=== PATIENT | female | born 1960 | race Caucasian/White ===

== ENCOUNTER 2018-06-09 10:32 | Day surgery (SDC) | payer OTHER ==
[2018-06-08 09:23] VITALS: BMI 34.4
[2018-06-09] MEDS: LIDOCAINE 1% 20 ML VIAL (10MG/ML) FOR IV START INTRADERMA ONE (11:48)
[2018-06-09] MEDS: LACTATED RINGERS 1,000 ML IV SCH (11:48)
[2018-06-09] MEDS ORDERED: LIDOCAINE 1% INJ 10MG/ML (20 ML MDV) ONE (12:08)
[2018-06-09] MEDS ORDERED: PROPOFOL 10 MG/ML 20 ML VIAL IV ONE (12:08)
--- NOTE | 2018-06-09 12:23 | P.PCN ---
Date of Procedure: 06/09/18 Procedure(s) Performed: BRIEF HISTORY: Patient is a 57-year-old pleasant white female, scheduled for an elective colonoscopy as a part of screening for colon neoplasia. PROCEDURE PERFORMED: Colonoscopy. PREOPERATIVE DIAGNOSIS: Screening for colon cancer. IV sedation per Anesthesia. PROCEDURE: After informed consent was obtained, the patient, was brought into the endoscopy unit. IV sedation was administered by Anesthesia under continuous monitoring. Digital rectal examination was normal. Initially the Olympus CF-160 flexible video colonoscope was then inserted in the rectum, gradually advanced into the cecum without any difficulty. Careful examination was performed as the scope was gradually being withdrawn. Ileocecal valve and the appendiceal orifice were visualized and appeared normal. Prep was excellent. Mucosa of the cecum, ascending colon, transverse colon, descending colon, sigmoid colon, and rectum appeared normal. Scattered sigmoid diverticulosis seen. Retroflexion was performed in the rectum and no lesions were seen. The patient tolerated the procedure well. IMPRESSION: Normal-appearing colon from rectum to cecum with no evidence of colorectal neoplasia Scattered sigmoidal diverticulosis. RECOMMENDATIONS: Findings of this examination were discussed with the patient as well as her family. She was advised to have a repeat screening colonoscopy in 10 years.
[2018-06-09 13:08] VITALS: BP 122/68; PULSE 63; RESP 18
== END 2018-06-09 13:20 | disposition home or self-care (01) ==
LOC: ORWHC2ENDO 10:32
PROVIDERS: ATTEND Internal Medicine Gastroenterology
DX: Z12.11 Encounter for screening for malignant neoplasm of colon (principal); K57.90 Diverticulosis of intestine, part unspecified, without perforation or abscess without bleeding; F17.210 Nicotine dependence, cigarettes, uncomplicated; Z86.73 Personal history of transient ischemic attack (TIA), and cerebral infarction without residual deficits; Z79.899 Other long term (current) drug therapy
CPT/HCPCS: J2001; J2704; G0121

== ENCOUNTER → 2018-12-29 | Outpatient (CLI) | payer OTHER ==
[2018-12-29 16:36] LABS: HCT 40.3 % (34.0-46.0); HGB 12.8 gm/dL (11.4-16.0); MCH 29.6 pg (25.0-35.0); MCHC 31.8 g/dL (31.0-37.0); Mean Platelet Volume 7.3; Platelet Count 236 k/uL (150-450); RBC 4.33 m/uL (3.80-5.40); RDW 12.9 % (11.5-15.5); WBC 6.7 k/uL (3.8-10.6)
[2018-12-30 00:41] LABS: African American GFR (CKD) 111.5 (60.0-200.0); Albumin 4.1 g/dL (3.80-4.90); Albumin/Globulin Ratio 1.52 (1.60-3.17); Anion Gap 9.7 mmol/L (4.00-12.00); BUN/Creat Ratio 31.43 Ratio (12.00-20.00); Calcium 8.8 mg/dL (8.7-10.3); Carbon Dioxide 25.3 mmol/L (21.6-31.8); Globulin 2.7 g/dL (1.6-3.3); Non-African American GFR(CKD) 96.2 (60.0-200.0); Potassium 4.2 mmol/L (3.5-5.5); Total Bilirubin 0.2 mg/dL (0.2-1.2); Total Protein 6.8 g/dL (6.2-8.2)
[2018-12-30 00:56] LABS: T4, Free (Free Thyroxine) 0.8 ng/dL (0.80-1.80)
== END | disposition home or self-care (01) ==
LOC: LABWHC1 14:42
PROVIDERS: ATTEND Internal Medicine
DX: L98.8 Other specified disorders of the skin and subcutaneous tissue (principal); R60.0 Localized edema; M79.673 Pain in unspecified foot
CPT/HCPCS: 36415; 80053; 84439; 84443; 84481; 85027

== ENCOUNTER → 2023-07-23 | Outpatient (CLI) | payer OTHER ==
[2023-07-23 18:14] LABS: Basophils # (A) 0.02 X 10*3/uL (0.00-0.10); Basophils % (A) 0.2 %; Eosinophils # (A) 0.09 X 10*3/uL (0.04-0.35); HCT 37.5 % (37.2-46.3); HGB 12.5 g/dL (12.0-15.0); Lymphocytes # (A) 3.31 X 10*3/uL (0.90-5.00); Lymphocytes % (A) 37.9 %; MCH 30.5 pg (27.0-32.0); MCHC 33.3 g/dL (32.0-37.0); MCV 91.5 FL (80.0-97.0); Mean Platelet Volume 10.7 FL (9.5-12.2); Monocytes # (A) 0.74 X 10*3/uL (0.20-1.00); Monocytes % (A) 8.5 %; NRBC Per 100 WBC 0 X 10*3/uL (0.00-0.01); Neutrophils # (A) 4.55 X 10*3/uL (1.80-7.70); Neutrophils % (A) 52.2 %; Platelet Count 267 X 10*3/uL (140-440); RDW 13.2 % (11.5-14.5); WBC 8.73 X 10*3/uL (4.50-10.00)
[2023-07-23 18:36] LABS: ALT 33 U/L (8-44); AST 23 U/L (13-35); Albumin 4.1 g/dL (3.8-4.9); Albumin/Globulin Ratio 1.24 Ratio (1.60-3.17); Alkaline Phosphatase 93 U/L (41-126); BUN/Creat Ratio 24.89 Ratio (12.00-20.00); Blood Urea Nitrogen 22.4 mg/dL (9.0-27.0); Calcium 8.5 mg/dL (8.7-10.3); Chloride 106 mmol/L (96-109); Chol/HDL Ratio 5.79 Ratio; Globulin 3.3 g/dL (1.6-3.3); Glucose 111 mg/dL (70-110); LDL Cholesterol,Calculated 162.9 mg/dL (0.0-131.0); Potassium 4.2 mmol/L (3.5-5.5); Sodium 139 mmol/L (135-145); Total Bilirubin <0.2 mg/dL (0.3-1.2); Total Protein 7.4 g/dL (6.2-8.2); Uric Acid 4.9 mg/dL (2.9-7.7)
[2023-07-24 04:38] LABS: Toxoplasma Antibody (IgG) <3.0 IU/mL (<7.2); Toxoplasma Antibody (IgM) <3.0 AU/mL (<8.0)
== END | disposition home or self-care (01) ==
LOC: LABWHC1 13:12
PROVIDERS: ATTEND Internal Medicine
DX: Z00.00 Encounter for general adult medical examination without abnormal findings (principal); E11.8 Type 2 diabetes mellitus with unspecified complications; E78.2 Mixed hyperlipidemia; E03.9 Hypothyroidism, unspecified; Z20.7 Contact with and (suspected) exposure to pediculosis, acariasis and other infestations
CPT/HCPCS: 36415; 80053; 80061; 83036; 83735; 84439; 84443; 84550; 85025; 86777; 86778

== ENCOUNTER → 2023-08-05 | Outpatient (CLI) | payer OTHER ==
--- NOTE | 2023-08-05 14:06 | BD ---
EXAMINATION TYPE: Axial Bone Density DATE OF EXAM: 08/05/2023 CLINICAL HISTORY: 63 years old Female. ICD-10 CODE: M81.0 AGE RELATED OSTEOPOROSIS Height: 5 ft 5 in Weight: 233 FRAX RISK QUESTIONS: Alcohol (3 or more units per day): no Family History (Parent hip fracture): no Glucocorticoids (More than 3mos): no (Ex: prednisone, prednisolone, methylprednisolone, dexamethasone, and hydrocortisone). History of Fracture in Adulthood: no Secondary Osteoporosis: 1. Type 1 Diabetes: no 2. Hyperthyroidism: no 3. Menopause before 45: no 4. Malnutrition: no 5. Chronic liver disease: no Rheumatoid Arthritis: no Current Tobacco Use: former/vaper RISK FACTORS HISTORY OF: Surgery to Spine/Hip(right/left)/Wrist (right/left): none MEDICATIONS: Thyroid Medications: none Osteoporosis Medications: none EXAM MEASUREMENTS: Bone mineral densitometry was performed using the [employer] System. Bone mineral density as measured about the Lumbar spine is: ----- L1-L4(G/cm2): 1.128 T Score Values are as follows: ----- L1: -0.8 ----- L2: -0.9 ----- L3: -0.8 ----- L4: 0.6 ----- L1-L4: -0.4 Z Score Values are as follows: ----- L1: -0.6 ----- L2: -0.7 ----- L3: -0.6 ----- L4: 0.8 ----- L1-L4: -0.2 baseline Bone mineral density about the R hip (g/cm2): 0.839 Bone mineral density about the L hip (g/cm2): 0.832 T Score values are as follows: -----R Neck: -1.4 -----L Neck: -1.5 -----R Total: -1.0 -----L Total: -0.9 Z Score values are as follows: -----R Neck: -0.9 -----L Neck: -0.9 -----R Total: -0.8 -----L Total: -0.7 baseline FRAX%s: The graph provided illustrates a 7.6 % chance for a major osteoporotic fx and a 1.1 % chance for the hips probability for fx in 10 years time. IMPRESSION: Normal (Values between +1 and -1 indicate normal bone mass). Consider repeating this study in 5 year s or sooner if there is some new clinical indication. NOTE: T-SCORE=SD OF THE YOUNG ADULT MEAN.
--- NOTE | 2023-08-05 14:36 | USB ---
Reason for Exam: Clinical finding. Patient History: Mother had breast cancer. Risk Values: Gloria 5 year model risk: 2.6%. NCI Lifetime model risk: 11.5%. Technique: Method: Targeted. Findings: The whole breast of both breasts, the axilla of both breasts and the retroareolar of both breasts were scanned. Please note patient refuses mammographic imaging. Hypoechoic lesion left 2:00 position 1 cm from the nipple measuring 3 x 3 mm. Further evaluation with MRI is advised. There are also mildly prominent lymph nodes seen bilaterally with borderline cortical thickening which could also be further evaluated at MRI. Overall Assessment: Incomplete: need additional imaging evaluation, BI-RAD 0 Management: Diagnostic Breast MRI of both breasts. A clinical breast exam by your physician is recommended on an annual basis and results should be correlated with mammographic findings. This exam should not preclude additional follow-up of suspicious palpable abnormalities. Results were given to the patient verbally at the time of exam. Electronically signed and approved by: Mikey Uribe M.D. Radiologis
== END | disposition home or self-care (01) ==
LOC: RADBDWWP 13:13
PROVIDERS: ATTEND Internal Medicine
DX: M85.89 Other specified disorders of bone density and structure, multiple sites (principal); M81.0 Age-related osteoporosis without current pathological fracture; N64.9 Disorder of breast, unspecified; R92.8 Other abnormal and inconclusive findings on diagnostic imaging of breast; Z80.3 Family history of malignant neoplasm of breast
CPT/HCPCS: 77080